=== PATIENT | male | born 1960 | race Caucasian/White ===

== ENCOUNTER 2023-05-13 12:19 | Emergency (ER) | payer OTHER, MEDICARE ==
[2023-05-13 13:20] LABS: #Basophils 0.1 thou/uL (0.0-0.2); #Monocytes 1.1 thou/uL (0.11-0.59); #Neutrophils 13.9 thou/uL (1.40-6.50); %Basophils 0.6 % (0.0-1.0); %Eosinophils 0.2 % (0.0-10.0); %Lymphocytes 7.2 % (21.0-51.0); %Monocytes 6.7 % (0.0-10.0); %Neutrophils 84.9 % (42.0-75.0); Hemoglobin 17.8 g/dL (14.0-18.0); Mean Corpuscular HGB CONC 34.2 g/dL (32.0-36.0); Mean Corpuscular Hemoglobin 32.2 pg (27.0-31.0); Mean Corpuscular Volume 94.2 fl (78.0-98.0); Mean Platelet Volume 9.2 fL (7.4-10.4); Platelet Count 339 10x3/uL (130-400); RBC Distribution Width 13.3 % (11.5-14.5); Red Blood Cell (RBC) Count 5.52 mill/uL (4.70-6.10); White Blood Cell (WBC) Count 16.4 10x3/uL (4.8-10.8)
[2023-05-13 13:38] LABS: PTT 27.8 sec (22.9-36.1)
[2023-05-13 13:49] LABS: Troponin I 0.025 ng/mL (< 0.028)
[2023-05-13 13:53] LABS: Acetaminophen Less than 10 mcg/mL (10.0-30.0); Alcohol Less than 10.0 mg/dL (Less than 10); Lipase 20 U/L (8-78); Salicylate Less than 8.0 mg/dL (15.0-30.0)
[2023-05-13 13:54] LABS: ALT (SGPT) 7 U/L (8-55); AST (SGOT) 14 U/L (5-34); Albumin 4.8 g/dL (3.4-4.8); Alkaline Phosphatase 85 U/L (40-110); Anion Gap 16 mmol/L (10-20); BUN (Urea Nitrogen) 9 mg/dL (8.4-25.7); Bilirubin, Total 1.2 mg/dL (0.2-1.2); CK (CPK) 118 U/L (30-200); Calc. Creatinine Clearance 0 mL/min (70-130); Calcium 10.5 mg/dL (7.8-10.44); Carbon Dioxide 21 mmol/L (23-31); Chloride 104 mmol/L (98-107); Estimated GFR 95; Globulin 3.5 g/dL (2.4-3.5); Glucose 153 mg/dL (80-115); Potassium 3.2 mmol/L (3.5-5.1); Protein, Total 8.3 g/dL (5.8-8.1); Sodium 138 mmol/L (136-145)
[2023-05-13 14:53] LABS: SARS-CoV-2 NAA Rapid Test Not Detected (NotDetected)
[2023-05-13 15:57] LABS: Free T4 (Free Thyroxine) 0.62 ng/dL (0.70-1.48); T4 2.61 ug/dL (4.87-11.72)
[2023-05-13 16:32] LABS: Lactic Acid 2.3 mmol/L (0.5-2.2)
[2023-05-13] MEDS ORDERED: Ondansetron PF 4 MG/2 ML Vial IVP PRN (16:59)
[2023-05-13] MEDS ORDERED: Acetaminophen 650 MG Suppository PR PRN (16:59)
[2023-05-13] MEDS ORDERED: Acetaminophen 325 MG TAB PO PRN (16:59)
[2023-05-13] MEDS ORDERED: Ondansetron ODT 4 MG TAB PO PRN (16:59)
[2023-05-13] MEDS ORDERED: Electrolyte Replacement Protocol 1 EACH FS SCH (17:22)
[2023-05-13] MEDS ORDERED: Lactated Ringer's 1,000 ML IV SCH (17:30)
[2023-05-13] MEDS ORDERED: Hydrocortisone Sod Succ/PF 100 mg/2 ml Vial IVP SCH (17:30)
[2023-05-13] MEDS ORDERED: Liothyronine Sodium 5 MCG TAB PO SCH (17:30)
[2023-05-13] MEDS ORDERED: Levothyroxine Sodium 200 MCG VIAL IVP SCH (18:30)
[2023-05-13] MEDS ORDERED: Famotidine/PF 20 mg/2ml Vial SLOW IVP SCH (21:00)
[2023-05-13] MEDS ORDERED: Famotidine 20 MG TAB PO SCH (21:00)
[2023-05-13] MEDS ORDERED: cefTRIAXone (ROCEPHIN) 1 GM VIAL ONE (21:18)
[2023-05-13] MEDS ORDERED: Labetalol HCl 100 MG/20 ML VIAL ONE (21:18)
[2023-05-13] MEDS ORDERED: Aspirin 325 MG TAB ONE (21:18)
[2023-05-13] MEDS ORDERED: Sodium Chloride 0.9% 100 ML ONE (21:18)
[2023-05-14] MEDS ORDERED: Levothyroxine 100 MCG SDV IVP SCH (06:00)
== END 2023-05-13 21:56 | disposition short-term general hospital (02) ==
LOC: ERS 12:19
DX: R41.82 Altered mental status, unspecified (principal); E03.9 Hypothyroidism, unspecified; F17.210 Nicotine dependence, cigarettes, uncomplicated
CPT/HCPCS: 36415; 70450; 71045; 74018; 80053; 80178; 80307; 82140; 82533; 82550; 83605; 83690; 84436; 84439; 84442; 84443; 84481; 84484; 85025; 85610; 85730; 87040; 93005; 96361; 96365; 96375; J0696; J3490